=== PATIENT | male | born 1945 | race Caucasian/White ===

== ENCOUNTER → 2016-12-03 | Day surgery (SDC) | payer MEDICARE, BC, OTHER ==
[~2016-12-03] MED LIST: ALDACTONE25 MG PO; ASPIRIN EC81 M1 PO; BENTYL20 M1 PO; CALCITRIOL0.25 MC1 PO; CARVEDILOL12.5 MG PO; CENTRUM SILVER PO; COLACE PO; DILTIAZEM 24HR120 MG PO; FISH OIL 1,0001 EACH PO; GLUCOTROL PO; JANUVIA50 MG DOB; LIPITOR20 MG PO; LOTENSIN20 MG PO; NEPHRO-VITE RX T1 M1 PO; NEPHROCAPS QT1 EACH PO; NITROSTAT0.4 MG SL; SODIUM BICARBO650 MG PO; VIAGRA25 MG PO; VITAMIN D32000 UNI1 PO; ZANTAC150 M1 PO; ZESTRIL2.5 M1 PO; ZOFRAN ODT4 MG/UDTAB PO; ZYLOPRIM PO; [UNRECOGNIZED DRUG - OTHER]; [UNRECOGNIZED DRUG - OTHER] PO
--- NOTE | ~2016-12-03 | OR ---
Unit #: [id number] #: [id number] Patient: TREVA ROMO [id number] [address] [place], [place] [address] [id number] MR#: [id number] NAME: TREVA ROMO ROOM: Date of Procedure: 12/03/2016 Admission Date: 12/03/2016 Surgeon: Shaji Pineda M.D. : 1945 Attending Physician: Shaji Pineda M.D. Primary Care Physician: Almas Marinelli M.D. OPERATIVE REPORT PRIMARY CARE PHYSICIAN Almas Marinelli M.D. PREOPERATIVE DIAGNOSES The patient has presented for surveillance colonoscopy having had personal history of colonic adenomas removed in the past. Therefore, procedure was performed. He mentioned that he had history of what seemed like melanotic dark stools. An upper endoscopy is therefore being done at the same time. The patient is status post remote lap-band surgery for adiposity. PROCEDURES PERFORMED Upper gastrointestinal endoscopy and biopsy as well as colonoscopy with polypectomy. 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 In addition, there was evidence of focal mild patchy erosive duodenitis. A biopsy was obtained for the antrum for CLOtest. Rest of the examination up to third part of duodenum was normal. For colonoscopy: 1. A large pedunculated polyp about 3.5 cm in size in the sigmoid colon. This was removed using snare cautery polypectomy. 2. Vkmj-[id number] sigmoid and descending colon diverticulosis. 3. Rest of the examination up to cecum and terminal ileum was normal. The quality of the prep was excellent. RECOMMENDATIONS 1. Follow up the results of polyp histology. 2. Repeat colonoscopy in 5 years. 3. Also follow up the results of biopsies taken from the esophagus. SEDATION USED MAC. DESCRIPTION OF PROCEDURE Following detailed explanation of the potential risks and complications of upper endoscopy and a colonoscopy, namely perforation, bleeding, and complications related to sedation, the patient was brought to GI lab and laid in the left lateral decubitus position. Lubricated tip of the Olympus video upper endoscope was passed through the bite block into the Unit #: [id number] #: [id number] Patient: TREVA ROMO proximal esophagus under direct vision. The entire esophageal mucosa was examined and the patient was noted to have postsurgical changes of gastric lap-band surgery. In addition, there was evidence of esophagitis above the lap-band, which is expected. The patient also had evidence of Soriano esophagus. The scope was then advanced into the gastric cavity and the latter was insufflated. Mucosa of the fundus, body, and antrum was examined and appeared unremarkable. Pylorus was intubated with visualization of the duodenal bulb. The latter was noted to have mild focal patchy erosive duodenitis. Second and third part of duodenum were normal. Upon withdrawal and retroflexion, incisura, cardia, and greater curve was examined and biopsy was obtained from the antrum for CLOtest. The scope was then withdrawn in the distal esophagus. Multiple biopsies were obtained from the Soriano segment and sent for histology. The entire esophageal mucosa was examined all the way up to pharynx. No additional findings were noted. The examination table was then turned by 180 degrees and the patient positioned for a colonoscopy. A digital rectal examination was performed, which was normal. Lubricated tip of the Olympus video colonoscope was inserted through the anus and advanced under direct vision. The scope was advanced past rectosigmoid into descending colon. A large pedunculated polyp was noted in the proximal sigmoid colon. The latter was about 3.5 to 4 cm in size. In addition, multiple diverticula were seen in this area. The scope tip was then navigated all the way up to cecum with visualization of the ileocecal valve and the appendiceal orifice. Preparation was excellent with good visualization and photodocumentation was obtained. Last several inches of the terminal ileum were also visualized after intubation of the ileocecal valve and appeared normal. Successive segments of the colonic mucosa were examined upon withdrawal and appeared unremarkable except for the changes noted earlier. The attention was focused on the polyp in the sigmoid colon. The latter was removed using snare cautery polypectomy. It was retrieved and sent for histology. Excellent hemostasis was achieved and photodocumentation was obtained. Other than the left-sided diverticula, no other abnormalities were noted. The patient did not have any hemorrhoids at the anal verge. The scope was then withdrawn and the patient returned to the recovery area. He tolerated the procedure without any postprocedure complications. Dictated by.Julien. Nakul Jones/dipika TD: 12/03/2016 23:26 JOB #: [id number] OPERATIVE REPORT Page 1 of 1 X Shaji Pineda MD PROCEDURE OPERATIVE NOTE
== END | disposition home or self-care (01) ==
LOC: COPS 07:52
DX: K22.70 Barrett's esophagus without dysplasia (principal); K20.9 Esophagitis, unspecified; D12.5 Benign neoplasm of sigmoid colon; K57.30 Diverticulosis of large intestine without perforation or abscess without bleeding; K29.80 Duodenitis without bleeding; E11.9 Type 2 diabetes mellitus without complications; I10 Essential (primary) hypertension; I25.10 Atherosclerotic heart disease of native coronary artery without angina pectoris; E78.5 Hyperlipidemia, unspecified; K21.9 Gastro-esophageal reflux disease without esophagitis; Z88.8 Allergy status to other drugs, medicaments and biological substances; Z95.1 Presence of aortocoronary bypass graft; Z79.82 Long term (current) use of aspirin; Z79.899 Other long term (current) drug therapy; Z98.84 Bariatric surgery status; Z98.890 Other specified postprocedural states
CPT/HCPCS: 82947; 87077; 88305; J2250

== ENCOUNTER 2017-03-31 19:24 | Emergency (ER) | payer MEDICARE, BC, OTHER ==
--- NOTE | ~2017-03-31 | EKG ---
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
--- NOTE | ~2017-03-31 | CR72 ---
[facility]. [facility] A Service of [facility] & [facility] RADIOLOGY TEXT RESULTS PATIENT: TREVA ROMO LOCATION: SED : 45 UNIT #: [id number] AGE: [address]: Isael Hensley MD SEX: M ORDER DR: [id number] [address] [address] [id number] MR#: [id number] Acc #: [id number] NAME: TREVA ROMO : 1945 SEX: M STUDY DATE/TIME: 03/31/2017 20:02 UNIT: SED ROOM: STUDY DESCRIPTION: CR Chest Single View Portable Attending Physician: Isael Hensley M.D. Ordering Physician: Isael Hensley M.D. Primary Care Physician: Almas Marinelli M.D. MEDICAL IMAGING REPORT This report is preliminary unless electronic signature is present. EXAM Portable chest HISTORY Chest pressure and pain x2 days. FINDINGS There is mild cardiac enlargement. Normal pulmonary vascularity. Sternotomy and CABG markers. No infiltrates or effusions are identified. Sensitivity is partly limited by relative underpenetration. IMPRESSION No acute findings. Cardiac enlargement. Dictated by... Taiwo Saenz M.D. THIS IS AN ELECTRONICALLY VERIFIED REPORT Taiwo Saenz M.D. at 04/01/2017 6:25 PM PRIMO/bienvenido TD: 04/01/2017 02:36 JOB #: [id number] MEDICAL IMAGING REPORT Page 1 of 1
[~2017-03-31 19:24] MED LIST changes: -ZANTAC150 M1 PO
[2017-03-31] MEDS ORDERED: ZANTAC150 M1 PO (19:50)
[2017-03-31 20:05] LABS: BASOPHIL# 0.1 X10e3 (0-0.3); EOSINOPHIL# 0.2 X10e3 (0-0.7); HEMATOCRIT 37.6 % (38.0-50.0); HEMOGLOBIN 12.8 gm/dL (13.0-16.0); LYMPHOCYTE# 1.5 X10e3 (1.0-3.5); LYMPHOCYTE% 14.9 % (17.0-45.0); MEAN CELL VOLUME 92.2 FL (83-96); MEAN CORPUSCULAR HEMOGLOBIN 31.5 PG (28-34); MEAN CORPUSCULAR HGB CONC 34.2 g/dL (30-36); MEAN PLATELET VOLUME 8.7 FL (6.5-11.5); NEUTROPHIL# 7.5 X10e3 (1.5-7.1); NEUTROPHIL% 72.1 % (40-75); PLATELET COUNT 169 X10e3 (140-420); RED BLOOD COUNT 4.07 X10e (3.90-5.60); RED CELL DISTRIBUTION WIDTH 14.2 % (11.0-15.5); WHITE BLOOD COUNT 10.4 X10e3 (4.0-10.5)
[2017-03-31 20:08] LABS: INR 1.1
[2017-03-31 20:09] LABS: DIFF IND NO
[2017-03-31 20:15] LABS: PARTIAL THROMBOPLASTIN TIME 22.5 SECONDS (25.6-38.1)
[2017-03-31 20:16] LABS: ALBUMIN SERUM 3.6 g/dL (3.5-5.0); ALKALINE PHOSPHATASE 38 U/L (32-92); ALT (SGPT) 23 U/L (10-40); AST (SGOT) 26 U/L (10-42); BILIRUBIN, DIRECT <0.1 mg/dL (0.0-0.2); BILIRUBIN,INDIRECT 0.6 mg/dL (0.0-0.9); BILIRUBIN,TOTAL 0.7 mg/dL (0.2-2.0); BLOOD UREA NITROGEN 36 mg/dL (9-23); BUN/CREATININE RATIO 12.85; CALCIUM SERUM 9.5 mg/dL (8.4-10.2); CARBON DIOXIDE 26 mmol/L (22-31); CHLORIDE 104 mmol/L (100-111); CREATININE SERUM 2.8 mg/dL (0.6-1.4); GLOM FILT RATE Estimated 21.7 mL/min (>60); GLUCOSE FASTING 130 mg/dL (70-110); SODIUM 137 mmol/L (135-145)
[2017-04-01 13:16] LABS: POC - CKMB 4.7 ng/mL (0.0-7.9); POC - TROPONIN <0.05 ng/mL (<=0.05)
[2017-04-01 13:18] LABS: POC - CKMB 4.7 ng/mL (0.0-7.9); POC - TROPONIN <0.05 ng/mL (<=0.05)
== END 2017-03-31 22:56 | disposition home or self-care (01) ==
LOC: SED 19:24
PROVIDERS: Emergency Medicine
DX: R07.89 Other chest pain (principal); R03.0 Elevated blood-pressure reading, without diagnosis of hypertension; E11.9 Type 2 diabetes mellitus without complications; E78.5 Hyperlipidemia, unspecified; Z95.1 Presence of aortocoronary bypass graft
CPT/HCPCS: 36415; 71010; 80048; 80076; 82553; 83874; 84484; 85025; 85610; 85730; 93005; 99285